=== PATIENT | female | born 1960 | race Caucasian/White ===

== ENCOUNTER → 2021-07-25 | Outpatient (CLI) | payer BC ==
--- NOTE | 2021-07-25 13:38 | XR ---
EXAMINATION TYPE: XR spine complete AP and Lat DATE OF EXAM: 07/25/2021 COMPARISON: NONE HISTORY: Pain TECHNIQUE: Three views of the cervical spine are submitted. FINDINGS: The cervical spine is visualized in its entirety from C1 thru the top of T1 level. It is s atisfactory in alignment without evidence of acute fracture or dislocation. The pre-vertebral soft t issue appears within normal limits. The C1-C2 articulation is unremarkable on the open mouth view. Mild scattered degenerative disc disease and spondylosis. IMPRESSION: No acute fracture or dislocation is seen in the cervical spine. Degenerative disc diseas e. THORACIC SPINE 2 VIEWS. TECHNIQUE: Frontal, lateral, and swimmer's view of thoracic spine are obtained. COMPARISON: None. FINDINGS: Thoracic spine show satisfactory alignment without evidence of acute fracture or dislocatio n. Vertebral body heights are preserved. [id number] degenerative disc disease and spondylosi s. Visualized ribs are unremarkable. IMPRESSION: No acute fracture or dislocation is seen in the thoracic spine. Degenerative disc disease . LUMBAR SPINE X-RAY: TECHNIQUE: Three views of the lumbar spine are submitted. COMPARISON: None. FINDINGS: There are 5 lumbar type vertebral bodies identified. The lumbar spine shows satisfactory alignment without evidence of acute fracture or dislocation. Vertebral body heights are within normal limits. Moderate disc disease at L5-S1. Mild facet joint arthropathy. The overlying soft tissue appears unremarkable. IMPRESSION: No acute fracture or dislocation is seen in the lumbar spine. Generative disc disease.I CD 10 NO FRACTURE, INITIAL EVALUATION
== END | disposition home or self-care (01) ==
LOC: RADXRMAIN 12:48
PROVIDERS: ATTEND Nurse Practitioner Family
DX: M54.50 Low back pain, unspecified (principal)
CPT/HCPCS: 72082

== ENCOUNTER → 2021-08-22 | Outpatient (CLI) | payer BC ==
--- NOTE | 2021-08-22 11:19 | XR ---
EXAMINATION TYPE: XR chest 2V DATE OF EXAM: 08/22/2021 COMPARISON: NONE HISTORY: Weight loss and tobacco use. TECHNIQUE: Frontal and lateral views of the chest are obtained. FINDINGS: There is mild underlying emphysematous change. There is right suprahilar mass and/or less likely masslike consolidation with increased opacity extending laterally. No pleural effusion or pne umothorax seen. Cannot exclude smaller nodule in the periphery of the left upper lobe overlying the a nterior intercostal space between second and third ribs. The cardiac silhouette size is within normal limits. Old healed fracture of the lateral right fifth through seventh ribs is felt present.. Cholec ystectomy clips noted on lateral view. IMPRESSION: Right hilar/suprahilar mass or neoplasm suspected. Advise contrast enhanced chest CT and /or PET CT follow-up to further evaluate. A Yellow level critical message alert has been initiated for Jonas Damon DO via the [employer] Critical Results System on 08/22/2021 11:17 AM. This message alert has been sent to DO marcin Amin the preferences provided by the clinician for the receipt of Radiology Critical Findings. Message ID [id number].
== END | disposition home or self-care (01) ==
LOC: RADXRMAIN 10:49
PROVIDERS: ATTEND Family Medicine
DX: R63.4 Abnormal weight loss (principal); Z72.0 Tobacco use
CPT/HCPCS: 71046

== ENCOUNTER → 2021-08-23 | Outpatient (CLI) | payer BC ==
--- NOTE | 2021-08-23 14:30 | CT ---
EXAMINATION TYPE: CT chest w con DATE OF EXAM: 08/23/2021 COMPARISON: 08/22/2021 HISTORY: Lt sided rib pain, abn xray CT DLP: 221.3 mGycm Automated exposure control for dose reduction was used. TECHNIQUE: CT scan of the chest is performed with IV Contrast, patient injected with 100 mL of Isovue 300. MIP Images are created on CT scanner and reviewed. 3D reconstructed images are created on an independent workstation and reviewed. FINDINGS: There is a large 7.7 cm right hilar mass additional consolidation seen distally likely in the basis o f obstructive atelectasis. There is compression of the right upper lobe bronchus. Soft tissue mass li giselle represents a combination of right upper lobe neoplastic malignancy and pathologic adenopathy of the mediastinum. Hypertrophic and degenerative changes of the spine. Multilevel degenerative disc disease. Heart size is normal. Ascending aorta measures 3.5 cm in greatest dimension. Upper abdomen demonstrates proximally 6 hepatic lesions with the largest seen centrally measuring 4.6 x 4 cm. Previous cholecystectomy is noted. There is thickening of the left adrenal gland. Diffuse emphysematous changes are seen. IMPRESSION: 1. 7.7 cm right hilar conglomerate mass and adenopathy highly suggestive of malignancy with findings suspicious for multiple hepatic metastases. 2. Thickening of the left adrenal gland is nonspecific could be on the basis of hyperplasia although metastases also in the differential diagnosis. 3. Diffuse emphysematous changes
== END | disposition home or self-care (01) ==
LOC: RADCTMAIN 12:30
PROVIDERS: ATTEND Family Medicine
DX: R91.8 Other nonspecific abnormal finding of lung field (principal)
CPT/HCPCS: 71260; Q9967

== ENCOUNTER 2021-09-06 13:39 | Day surgery (SDC) | payer BC ==
[2021-09-04 13:51] VITALS: BMI 20.8
[~2021-09-06 13:39] MED LIST: ALBUTEROL NEB (CONC) 2.5 MG/0.5 ML INHALATION ONE; LIDOCAINE 2% (PF) 20 MG/ML 5 ML VIAL INHALATION ONE; LIDOCAINE VISCOUS 300 MG/15 ML CUP MUCOUS MEM ONE
[2021-09-06] MEDS ORDERED: LIDOCAINE 1% (10MG/ML) FOR IV START INTRADERMA ONE (13:50)
[2021-09-06] MEDS: LACTATED RINGERS 1,000 ML IV SCH ×2 (13:50→16:23)
[2021-09-06 13:59] LABS: Glucose,Whole Blood 117 mg/dL (75-99)
[2021-09-06] MEDS ORDERED: SUCCINYLCHOLINE CHLORIDE 100 MG/5 ML SYR IV ONE (14:07)
[2021-09-06] MEDS ORDERED: SUGAMMADEX SODIUM 500 MG/5 ML SDV IV ONE (14:07)
[2021-09-06] MEDS ORDERED: NEOSTIGMINE 1 MG/ML 10 ML VIAL ONE (14:07)
[2021-09-06] MEDS ORDERED: MIDAZOLAM 2 MG/2 ML VIAL ONE (14:07)
[2021-09-06] MEDS ORDERED: ROCURONIUM 10 MG/ML (5 ML VIAL) IV ONE (14:07)
[2021-09-06] MEDS ORDERED: .fentaNYL (PF) 50 MCG/ML AMP ONE (14:07)
[2021-09-06] MEDS ORDERED: LIDOCAINE 1% INJ 10MG/ML (20 ML MDV) ONE (14:07)
[2021-09-06] MEDS ORDERED: KETAMINE 10 MG/ML 20 ML VIAL ONE (14:07)
[2021-09-06] MEDS ORDERED: GLYCOPYRROLATE 0.2 MG/ML 2 ML VIAL ONE (14:07)
[2021-09-06] MEDS ORDERED: PROPOFOL 10 MG/ML 20 ML VIAL IV ONE (14:07)
--- NOTE | 2021-09-06 14:50 | P.PCN ---
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 Procedure(s) Performed: 1 flexible bronchoscopy, airway inspection 2 transbronchial biopsy of a right upper lobe mass 3 transbronchial brushing of the right upper lobe mass 4 bronchioloalveolar lavage of the right upper lobe Surgeon: Bing Caceres Fountain Pen Nibs Inspector #1: Chloé Mistry (kevin Awad) Estimated Blood Loss (ml): 0 Pathology: other Condition: stable Disposition: same day Operative Findings: After obtaining the consent the patient was taken to the OR suite he was intubated and put on MV by anesthesia then the scope was advanced to the ET tube until the Trachea was seen and it was normal and then the peggy appears normal then the scope advanced to the left main and SAUD LB1-LB3 were seen and no endobronchial lesions were seen then the scope advanced to the lingula and the LB4 and LB5 were seen and no endobronchial lesions were seen the scope retracted and advanced to the left lower lobes LB6 to LB12 were seen one by one and no endobronchial lesions, then the scope was retracted back to the peggy and advanced to the Right main and RUL bronchus was completely obstructed with endobronchial tumor and there was irregular, vascular, cauliflower appearance surface tumor completely occluding the right upper lobe bronchus to the point where the various segments of the right upper lobe were not adequately visualized. At that point, endobronchial and transbronchial biopsies of the right upper lobe mass was done and multiple biopsies were obtained without any complications and no significant bleeding was encountered. Then, transbronchial brushing of the right upper lobe mass was done and following that a bronchial lavage of the right upper lobe was done with a total of 80 mL of fluid was infused in 20 mL of blood gases was obtained. Following that, the flexible bronchoscope was retracted and advanced to the BI and RML RB4 and RB5 were seen and no endobronchial lesions were seen then it was retracted and advanced to the RLL RB6 to RB12 were seen one by one and no endobronchial lesions. The procedure completed without any complication. Bronchoscope was removed and the patient was extubated and transferred to recovery in stable condition.
[2021-09-06 15:32] VITALS: TEMP 97.2
--- NOTE | 2021-09-06 15:37 | XR ---
EXAMINATION TYPE: XR chest 1V portable DATE OF EXAM: 09/06/2021 COMPARISON: Chest x-ray August 22, 2021. CT thorax August 23, 2021 HISTORY: Right-sided bronchoscopy and biopsy TECHNIQUE: Single portable frontal view of the chest is obtained. FINDINGS: There is background chronic emphysematous change with right hilar mass redemonstrated. The re is postobstructive atelectatic change extending laterally. No right-sided pneumothorax after bronc hoscopy and sampling. Left lung remains clear. The cardiac silhouette size is stable and within norm al limits. The osseous structures are intact. IMPRESSION: No pneumothorax after bronchoscopy and right lung sampling.
[2021-09-06 16:13] VITALS: BP 111/66; PULSE 85; RESP 16
== END 2021-09-06 16:31 | disposition home or self-care (01) ==
LOC: ORWHC2ENDO 13:39
PROVIDERS: ATTEND Internal Medicine Critical Care Medicine
DX: R91.8 Other nonspecific abnormal finding of lung field (principal); F32.9 Major depressive disorder, single episode, unspecified; F17.210 Nicotine dependence, cigarettes, uncomplicated; M47.9 Spondylosis, unspecified; J44.9 Chronic obstructive pulmonary disease, unspecified; E11.9 Type 2 diabetes mellitus without complications; Z79.899 Other long term (current) drug therapy
CPT/HCPCS: 71045; 31625; 31623; 31624; J2250; J2710; J2001; J3010; J0330; J2704; 88305; 88341; 88342

== ENCOUNTER → 2021-09-07 | Outpatient (CLI) | payer BC ==
--- NOTE | 2021-09-10 07:03 | PE ---
EXAMINATION TYPE: PET CT fusion skull to thigh DATE OF EXAM: 09/07/2021 COMPARISON: Chest CT August 23, 2021 HISTORY: Right lung nodule. TECHNIQUE: Following the intravenous administration of 10.05 mCi of F-18 FDG, whole body images are performed from the skull base to the midthigh. Images are reviewed on the computer in the coronal, a xial, and sagittal planes. Reconstructed rotating images are created on independent workstation and reviewed on the computer. A localization and attenuation correction CT is performed in conjunction with the PET scan. Blood glucose level equals 101. SCAN: Initial Scan FINDINGS: SKULL BASE AND NECK: Abnormal hypermetabolic right supraclavicular hypermetabolic lymph nodes axial images 64 and 66 measuring 1.2 x 1.1 cm axial image 66 for reference. Additional hypermetabolic near 1.0 cm lymph node just below the thyroid gland axial image 68. CHEST, MEDIASTINUM, AND HILAR REGION: Background moderate underlying emphysematous change redemonstra dominique. Persistent hypermetabolic right suprahilar mass measuring approximately 6.2 x 4.9 cm axial image 87, max SUV is seen inferior to this 9.28 on axial image 95. Abnormal confluent hypermetabolic right paratracheal mass or adenopathy measuring at least 5.9 x 4.6 cm axial image 83 extending into anterior superior mediastinum superiorly and in the right hilum infe riorly, max SUV is 8.78. ABDOMEN AND PELVIS: Hypermetabolic hypodense masses throughout the liver are confirmed, largest centr ally measures 8.2 cm axial image 135, max SUV is 9.27. Hypermetabolic lesion anterior inferior to thi s measuring 6.8 cm long axis bulging anterior contour axial image 145 noted. No hypermetabolic uptake in the low dense adrenal nodular masses or thickening. Normal excretion. OSSEOUS STRUCTURES: Abnormal hypermetabolic uptake in 2 left sided ribs, there is adjacent soft tissu e mass axial image 79 noted. The max SUV at this level is 9.61. Hypermetabolic uptake spinous process inferior T12 level and involving the superior L4 vertebra right aspect axial image 169. Additional s cattered smaller hypermetabolic lesions throughout the lumbar spine along with the bilateral pelvis. There is hypermetabolic lesion in the right femoral head. No definitive CT correlate. Sclerotic lesio n left iliac bone near sacroiliac joint shows no abnormal hypermetabolic uptake. Perhaps prior bone h arvesting. OTHER CT: Mild to moderate calcified plaque of the aorta extends into branch vessels. Cholecystectomy clips are seen. Sigmoid colonic diverticulosis. IMPRESSION: Large right suprahilar mass or neoplasm with large confluent mediastinal adenopathy. Ther e is additional right supraclavicular adenopathy. There is hepatic and osseous metastatic disease as detailed above.
== END | disposition home or self-care (01) ==
LOC: RADPETMAIN 07:41
PROVIDERS: ATTEND Family Medicine
DX: R91.8 Other nonspecific abnormal finding of lung field (principal)
CPT/HCPCS: 78815; A9552

== ENCOUNTER → 2021-09-12 | Outpatient (CLI) | payer BC ==
--- NOTE | 2021-09-13 04:42 | MR ---
EXAMINATION TYPE: MR brain wo/w con DATE OF EXAM: 09/12/2021 COMPARISON: None HISTORY: Lung ca, left side weakness CONTRAST: Standard multiplanar, multisequence MRI departmental protocol images were obtained without contrast a nd with 6 mL intravenous Gadavist gadolinium contrast. There is some cerebral cortical atrophy. There is no mass effect nor midline shift. Brainstem is inta ct. There are multiple foci of increased signal at the astudillo-white matter junction of both cerebral hemisp heres measuring up to 7 mm. The total number is approximately 30. There is intact corpus callosum. Di ffusion images show no evidence of an acute infarct. There is normal enhancement of the venous sinuse s. Contrast images show no pathologic enhancement. The brainstem is intact. Corpus callosum is intact . Sella turcica is intact. There is no evidence of orbital mass. IMPRESSION: Cerebral atrophy. Numerous white matter high signal foci are somewhat peripheral and suggestive of mu ltiple foci of microvascular ischemia. Demyelinating disease is not excluded. No evidence of metastatic disease.
== END | disposition home or self-care (01) ==
LOC: RADMRIMAIN 09:00
PROVIDERS: ATTEND Internal Medicine Hematology & Oncology
DX: C34.11 Malignant neoplasm of upper lobe, right bronchus or lung (principal)
CPT/HCPCS: 70553; A9585